=== PATIENT | female | born 1990 | race African-American/Black ===

== ENCOUNTER 2016-09-04 14:19 | Emergency (ER) | payer BC ==
[~2016-09-04] VITALS: Ht 160 cm; Wt 104.5 kg
[~2016-09-04 14:19] MED LIST: AMBIEN 10MG10 MG PO; BIRTH CONTROL IMPLAN; CYMBALTA 30MG30 MG PO; DEPO-PROVER150 MG/M1 IM; DOXYCYCLINE 10100 MG PO; IMPLANON68 MG ID; NAPROSYN500 MG PO; NORCO 325 MG-51 TAB PO; PERCOCET 325 MG1 TA2 PO
[2016-09-04 14:23] VITALS: TEMP 98.3
[2016-09-04] MEDS ORDERED: CELEXA 20MG20 MG/TAB PO (14:24)
[2016-09-04 14:55] LABS: BASO # 0.1 (0.0-0.2); BASO % 0.7 % (0.0-2.0); EOS # 0.2 (0.0-0.7); EOS % 1.5 % (0-4.0); GRAN # 5.4 (1.4-6.5); GRAN % 53.7 % (42.2-75.2); HEMOGLOBIN 12.4 g/dl (12.5-16.0); LYMPH # 3.7 (1.2-3.4); LYMPH % 36.7 % (20.0-51.0); MEAN CELL VOLUME 78 fl (80.0-100.0); MEAN CORPUSCULAR HEMOGLOBIN 27 pg (27.0-31.0); MEAN CORPUSCULAR HGB CONC 34 g/dl (33.0-37.0); MEAN PLATELET VOLUME 10.2 fl (7.4-10.4); MONO # 0.7 (0.1-0.6); MONO % 7.2 % (1.7-9.3); PLATELET COUNT 334 K/mm3 (130-400); RED BLOOD COUNT 4.64 M/mm3 (4.10-5.30); REDCELL DISTRIBUTION WIDTH-CV 13.8 % (11.5-14.5); WHITE BLOOD COUNT 10.1 K/mm3 (4.8-10.8)
[2016-09-04 15:01] LABS: HEMATOCRIT 36.4 % (37.0-47.0)
[2016-09-04 15:05] LABS: ADJUSTED CALCIUM 9.5 mg/dL (8.4-10.2); ALBUMIN 3.9 gm/dL (3.5-5.0); BILIRUBIN,TOTAL 0.6 mg/dL (0.0-1.0); CALCIUM 9.4 mg/dL (8.4-10.2); CREATININE, serum 1.36 mg/dL (0.52-1.25); POTASSIUM 3.8 mmol/L (3.4-5.0); TOTAL PROTEIN 7.5 gm/dL (6.4-8.2)
[2016-09-04 16:51] VITALS: BP 138/78; PULSE 68
== END 2016-09-04 16:51 | disposition home or self-care (01) ==
LOC: COL.ER 14:19
PROVIDERS: Emergency Medicine
DX: E16.2 Hypoglycemia, unspecified (principal)

== ENCOUNTER 2017-04-27 19:12 | Emergency (ER) | payer BC ==
[~2017-04-27] VITALS: Ht 160 cm; Wt 112.3 kg
[~2017-04-27 19:12] MED LIST changes: +CELEXA 20MG20 MG/TAB PO
[2017-04-27 19:42] VITALS: BP 138/72; TEMP 98.6
[2017-04-27] MEDS ORDERED: CEPHALEXIN500 M1 PO (22:13)
[2017-04-27 22:20] VITALS: PULSE 74
== END 2017-04-27 22:20 | disposition home or self-care (01) ==
LOC: COL.ER 19:12
DX: H61.22 Impacted cerumen, left ear (principal); R59.1 Generalized enlarged lymph nodes

== ENCOUNTER 2018-01-17 19:50 | Emergency (ER) | payer BC ==
[~2018-01-17] VITALS: Ht 160 cm; Wt 111.4 kg
[~2018-01-17 19:50] MED LIST changes: +CEPHALEXIN500 M1 PO
[2018-01-17 19:55] VITALS: BP 142/93; TEMP 98.5
[2018-01-17 21:12] VITALS: PULSE 81
== END 2018-01-17 21:13 | disposition home or self-care (01) ==
LOC: COL.ER 19:50
DX: M79.89 Other specified soft tissue disorders (principal)